=== PATIENT | female | born 1960 | race Two or more races ===

== ENCOUNTER 2017-12-26 08:19 | Outpatient (CLI) | payer OTHER | END 2017-12-26 08:29 | disposition home or self-care (01) | LOC: MAMO-SONO 08:19 | DX: Z12.31 Encounter for screening mammogram for malignant neoplasm of breast (principal) ==

== ENCOUNTER 2023-04-25 07:29 | Outpatient (CLI) | payer OTHER | END 2023-04-25 07:31 | disposition home or self-care (01) | LOC: NUCLEAR 07:29 | PROVIDERS: ATTEND Specialist | DX: K80.00 Calculus of gallbladder with acute cholecystitis without obstruction (principal) ==